=== PATIENT | female | born 1940 | race Caucasian/White ===

== ENCOUNTER → 2016-07-11 10:56 | Outpatient (CLI) | payer MEDICARE, MEDICAID ==
[2016-04-19 17:09] VITALS: BMI 28.7
[~2016-07-11 10:56] MED LIST: ASPIRIN 81 MG E81 MG PO; BRILINTA90 MG PO; CALCIUM 600+D T1 TA1 PO; DIOVAN80 MG PO; EFFIENT10 MG PO; HYDROCHLOROTH12.5 M1 PO; HYZAAR 50-12.51 TAB PO; LEVOTHROID125 MCG PO; MULTI-DAY VITAM1 TAB PO; NORCO 7.5-3251 EACH PO; PINDOLOL5 MG PO; PLAVIX75 MG PO; ULTRAM50 MG PO; VITAMIN B-12500 MC1 PO; VITAMIN C1000 MG; VITAMIN D5000 UNIT PO; ZOFRAN4 MG PO
== END | disposition home or self-care (01) ==
LOC: D.MRI 10:56
DX: M25.512 Pain in left shoulder (principal)

== ENCOUNTER 2016-11-11 18:11 | Emergency (ER) | payer MEDICARE ==
[2016-04-19 17:09] VITALS: BMI 28.7
== END 2016-11-11 19:54 | disposition home or self-care (01) ==
LOC: D.ER 18:11
DX: S93.401A Sprain of unspecified ligament of right ankle, initial encounter (principal); X58.XXXA Exposure to other specified factors, initial encounter; Y93.89 Activity, other specified; Y92.89 Other specified places as the place of occurrence of the external cause; M54.12 Radiculopathy, cervical region; I25.10 Atherosclerotic heart disease of native coronary artery without angina pectoris; I10 Essential (primary) hypertension; E03.9 Hypothyroidism, unspecified

== ENCOUNTER → 2017-04-11 13:28 | Outpatient (CLI) | payer MEDICARE ==
[2016-04-19 17:09] VITALS: BMI 28.7
== END | disposition home or self-care (01) ==
LOC: D.MAMMO 08:30
DX: N60.02 Solitary cyst of left breast (principal)

== ENCOUNTER 2017-09-25 10:26 | Observation (INO) | payer MEDICARE ==
[~2017-09-25] VITALS: Ht 170.2 cm; Wt 86.7 kg
--- NOTE | ~2017-09-25 | HEMODYNAMI ---
PATIENT:CYNTHIA DE LA CRUZ MEDICAL RECORD: [id number] : 38 LOCATION:D. D.2117 ADMISSION DATE: 09/25/17 Generatedon:09/26/20178:42 Patient name: CYNTHIA DE LA CRUZ Patient #: [id number] SSN: D OB: 1940 Date of study: 09/26/2017 Page: Of Hemodynamic Procedure Report Patient Data Patient Demographics Procedure consent was obtained First Name: CYNTHIA Gender: Female Last Name: JONO : 1940 Patient #: [id number] Age: 76 year(s) Race: Additional ID: [id number] Contact details Address: [address] [place] [address] State: [place] City: [place] Zip code: [address] Past Medical History History of disease Date Diagnosis Comments CAD Allergies Allergen Reaction Date Comments Reported Penicillins 06/06/2015 Sulfa drugs 06/06/2015 Other allergy 06/06/2015 Plavix, Aleeve Penicillins 04/20/2016 Sulfa drugs 04/20/2016 Other allergy 04/20/2016 Naproxen, Plavic, Brilinta Other allergy 09/26/2017 PCN, Sulfa, Brilinta Admission Admission Data Admission Date: 09/25/2017 Admission Time: 13:15 Admit Source: Other Room #: D.2117 Lab Results Lab Result Date: 09/25/2017 Lab Result Time: 0:00 Biochemistry Name Units Result Min Max BUN mg/dl 18 --(---*)-- 7 18 Creatinine mg/dl 0.8 --(-*--)-- 0.6 1.3 CBC Name Units Result Min Max Hemoglobin g/dl 13.2 -*(----)-- 13.5 17.5 Procedure Procedure Types Cath Procedure Diagnostic Procedure LHC LHC w/Coronaries Procedure Description Procedure Date Procedure Date: 09/26/2017 Procedure Start Time: 8:22 Procedure End Time: 8:41 Procedure Staff Name Function Willi Andersen MD Performing Physician Sincere Camejo RT Monitor Tanya Mary Ann RT Scrub Rakesh Mcgarry RN Nurse Procedure Data Cath Procedure Fluoroscopy Diagnostic fluoroscopy Total fluoroscopy Time: time: 1.53 min 1.53 min Diagnostic fluoroscopy Total fluoroscopy dose: 392 dose: 392 mGy mGy Contrast Material Contrast Material Type Amount (ml) Isovue 300 37 Entry Location Entry Primary Successful Side Size Upsize Upsize Entry Closure Succes sful Closure Location (Fr) 1 (Fr) 2 (Fr) Remarks Device Remarks Femoral Right 5 Fr Exoseal artery Estimated blood loss: 5 ml Diagnostic catheters Device Type Used For End Catheter Placement DIAGNOSTIC JL 5 5Fr Procedure catheter ([id number]) MULTIPACK 3DRC 5Fr Procedure catheter MULTIPACK Pigtail 5 Fr Procedure catheter Procedure Complications No complications Procedure Medications Medication Administration Route Dosage 0.9% NaCl I.V. 100 ml/hr Oxygen NC 2 l/min Heparin Flush Bag added to field 2 bags (1000units/500ml NS) Lidocaine 2% added to field 20 Versed I.V. 1 mg Fentanyl I.V. 25 mcg Hemodynamics Rest HGB: 13.2 (g/dl) Heart Rate: 68 (bpm) Pressure Samples Time Site Value (mmHg) Purpose Heart Use Rate(bpm) 8:33 LV 169/-20,17 EDP 77 8:33 AO 168/76(118) Pullback 77 8:33 LV 170/13,16 Pullback 77 Gradients Valve Time Site 1 Site 2 Mean SEP/DFP Peak To Heart Use (mmHg) (sec/min) Peak Rate (mmHg) (bpm) Aortic 8:33 LV AO 2 20 2 77 170/13,16 168/76(118) Calculations Valve P-P Mean Valve Index Valve Source Name Gradient Area Flow (cm2) Aortic 2 2 2 2 Snapshots Pre Cath Intra NCS Post Cath Vital Signs Time Heart Resp SPO2 etCO2 NIBP (mmHg) Rhythm Pain Sedation Rate (ipm) (%) (mmHg) Status Level (bpm) 8:17:47 75 20 98 48.3 150/78(106) NSR 0 (11) 10(A) , No pain 8:22:36 65 14 98 29.4 137/79(104) NSR 0 (11) 10(A) , No pain 8:27:25 71 17 98 49 141/74(112) NSR 0 (11) 9(A) , No pain 8:32:48 76 18 98 35.4 148/88(129) NSR 0 (11) 10(A) , No pain 8:37:37 72 16 97 32.4 149/82(125) NSR 0 (11) 10(A) , No pain Medications Time Medication Route Dose Verified Delivered Reason Notes Effec tiveness by by 8:16:43 0.9% NaCl I.V. 100 Rakesh Rakesh Per ml/hr Zeferino Mcgarry physician RN RN 8:16:55 Oxygen NC 2 Rakesh Rakesh Per l/min Zeferino Mcgarry physician RN RN 8:17:07 Heparin Flush added 2 Rakesh Rakesh used for Bag to bags Lorigan Zeferino procedure (1000units/500ml field RN RN NS) 8:17:21 Lidocaine 2% added 20ml Rakesh Rakesh for local to vial Lorigan Lorigan anesthetic field RN RN 8:23:41 Versed I.V. 1 mg Rakesh Rakesh for Lorigan Lorigan sedation RN RN 8:23:51 Fentanyl I.V. 25 Rakesh Rakesh for mcg Lorigan Lorigan sedation RN electron tube assembler Log Time Note 7:47:23 Informed consent obtained and on chart 7:47:25 Admit Source: Other 7:47:44 Diagnostic Cath status Elective 7:47:45 Time tracking: Regular hours 7:47:48 Plan of Care:Hemodynamics will remain stable., Cardiac rhythm will remain stable., Comfort level will be maintained., Respiratory function will remain adequate., Patient/ family verbilizes understanding of procedure., Procedure tolerated without complication., Recovers from procedure without complications.. 7:48:42 Lab Result : BUN 17 mg/dl 7:48:42 Lab Result : Hematocrit 38 % 7:48:42 Lab Result : Hemoglobin 12.4 g/dl 7:48:42 Lab Result : Creatinine 0.7 mg/dl 7:49:27 Rakesh Mcgarry RN sent for patient. Start room use. 8:03:52 Patient received from Med II to CCL 1 Alert and oriented. Tansferred to table in Supine position. 8:03:53 Warm blankets applied, and jairo hugger turned on for patient comfort. 8:03:54 Correct patient and procedure confirmed by team. 8:03:55 ECG and BP/O2 sat monitors applied to patient. 8:16:41 Vital chart was started 8:16:42 Baseline sample Acquired. 8:16:43 0.9% NaCl 100 ml/hr I.V. was administered by Rakesh Mcgarry RN; Per physician; 8:16:52 Rhythm: sinus rhythm 8:16:54 Full Disclosure recording started 8:16:55 Oxygen 2 l/min NC was administered by Rakesh Mcgarry RN; Per physician; 8:17:02 H&P Date Dictated: 09/25/2017 Within 30 days and on chart.. 8:17:03 Pre-procedure instructions explained to patient. 8:17:04 Pre-op teaching completed and patient verbalized understanding. 8:17:06 Family in patients room. 8:17:07 Heparin Flush Bag (1000units/500ml NS) 2 bags added to field was administered by Rakesh Mcgarry RN; used for procedure; 8:17:09 Patient NPO since Midnight. 8:17:21 Lidocaine 2% 20ml vial added to field was administered by Rakesh Mcgarry RN; for local anesthetic; 8:17:27 Patient allergic to Other allergyPCN, Sulfa, Brilinta 8:17:29 Is the patient allergic to Iodine/contrast media? No. 8:17:30 Is patient on blood thinner?Yes 8:17:32 ACC The patient was administered the following blood thiners within the last 24 hours: ACCPlavix 8:17:34 Patient diabetic? No. 8:17:37 Previous problem with sedation/anesthesia? No ? 8:17:37 Snore? No 8:17:38 Sleep apnea? No 8:17:39 Deviated septum? No 8:17:42 Opens mouth fully? Yes 8:17:43 Sticks out tongue? Yes 8:17:45 Airway obstruction? No ? 8:17:47 Dentures? Yes in tight 8:17:50 Pre procedure: right dorsailis pedis pulse 2+ Normal; easily identifiable; not easily obliterated 8:17:53 Patient pain scale 0/10 ?. 8:18:00 IV patent on arrival in left hand with 0.9% NaCl at [facility]. 8:18:02 Lab results completed and on chart. 8:18:06 Right groin area was prepped with chlora-prep and draped in sterile fashion 8:18:07 Alarms reviewed by Pawel Gay. 8:18:07 Sharps counted by scrub and verified by R.N. 8:18:10 Use device set Femoral Dx 8:18:11 ACIST Syringe (77425) opened to sterile field. 8:18:11 Bag Decanter (2002S) opened to sterile field. 8:18:12 Medline Cath Pack ([id number]) opened to sterile field. 8:18:14 ACIST Hand Control (36119) opened to sterile field. 8:18:14 ACIST Manifold (48357) opened to sterile field. 8:18:15 Tegaderm 4 x 4 (1626W) opened to sterile field. 8:18:21 MICROPUNCTURE 4FR Cook ([id number]) opened to sterile field. 8:18:23 DIAGNOSTIC WIRE .035 260cm J wire (705126) opened to sterile field. 8:19:06 SHEATH 5Fr Prelude ([id number]) opened to sterile field. 8:19:15 DIAGNOSTIC Multipack 5Fr catheter set (GD1221) opened to sterile field. 8:20:28 Physician arrived 8:20:29 --------ALL STOP TIME OUT------ 8:20:30 Final Timeout: patient, procedure, and site verified with staff and physician. All members of the team are in agreement. 8:20:32 Right groin site verified by team. 8:20:35 Physical assessment completed. ASA score P 2 - A patient with mild systemic disease as per Willi Andersen MD. 8:20:37 Sedation plan: IV Moderate Sedation Medication:Versed, Fentanyl 8:22:57 Procedure started. 8:22:59 Local anesthetic to right femoral artery with Lidocaine 2% by Willi Andersen MD.INITIAL ACCESS ONLY 8:23:19 Zero performed for pressure channel P1 8:23:41 Versed 1 mg I.V. was administered by Rakesh Mcgarry RN; for sedation; 8:23:51 Fentanyl 25 mcg I.V. was administered by Rakesh Mcgarry RN; for sedation; 8:24:50 Access obtained with 4Fr micropunture. 8:25:04 A 5 Fr sheath was inserted into the Right Femoral artery 8:26:41 A DIAGNOSTIC JL 5 5Fr catheter ([id number]) was advanced over the wire and used for Procedure. 8:27:38 LCA angiography performed. 8:30:00 Catheter exchanged over wire. 8:30:09 A MULTIPACK 3DRC 5Fr catheter was advanced over the wire and used for Procedure. 8:30:59 RCA angiography performed. 8:32:13 Catheter exchanged over wire. 8:32:23 A MULTIPACK Pigtail 5 Fr catheter was advanced over the wire and used for Procedure. 8:33:42 LV gram done using SAZN 8:33:58 EF : 65 % 8:34:01 LV hemodynamics recorded. 8:34:04 Injector settings: Ml/sec: 12, Volume: 8, 8:34:10 Catheter removed. 8:34:12 EXOSEAL 5Fr (EX500) opened to sterile field. 8:34:21 Sheath removed intact; hemostasis achieved with Exoseal to the Right Femoral artery. 8:34:31 Procedure ended.(Physican Out) 8:34:56 Fluoroscopy time 01.53 minutes. 8:35:01 Fluoroscopy dose: 392 mGy 8:35:01 Flurop Dose total: 392 8:35:14 Contrast amount:Isovue 300 37ml. 8:35:16 Sharps counted by scrub and verified by R.N. 8:35:16 Insertion/operative site no bleeding no hematoma. 8:35:19 Post-op/insertion site Right Femoral artery dressed using a 4 x 4 and Tegaderm. 8:35:23 Post right femoral artery:stable, soft, clean and dry 8:35:24 Post Procedure Pulses reassessed and unchanged 8:35:28 Post-procedure physical assessment completed. ASA score P 2 - A patient with mild systemic disease as per Willi Andersen MD. 8:35:30 Post procedure rhythm: unchanged. 8:35:33 Estimated blood loss: 5 ml 8:35:37 Post procedure instruction explained to patient.Patient verbalizes understanding. 8:35:38 Patient needs reinforcement of post procedure teaching. 8:40:27 Procedure and supply charges have been captured, reviewed, submitted and are correct. 8:40:30 Procedure Complication : No complications 8:40:34 Vital chart was stopped 8:40:34 See physician's report for complete and final results. 8:40:35 Report given to Pre/Post Procedure Room. 8:40:38 Patient transfered to Pre/Post Procedure Room with Stretcher. 8:41:31 Drape sticker cause small skin tear on pt. Cleaned and dressed with a 4X4 and tegaderm 8:41:57 Procedure ended. 8:41:57 Full Disclosure recording stopped 8:42:01 End room use (Document Last) Device Usage Item Name Manufacture Quantity Catalog Hospital Part Current Minima l Lot# / Number Charge Number Stock Stock Serial# Code ACIST Syringe Acist 1 93452 473118 247851 458753 20 (37148) Medical Systems Inc Bag Decanter Microtek 1 2001S [id number] 67535 [id number] 5 (2001S) Medical Inc. Medline Cath Cardinal 1 [id number] 907173 32362 973189 5 Pack Health ([id number]) ACIST Hand Acist 1 09102 922354 394336 346271 5 Control Medical (86554) Systems Inc ACIST Acist 1 99867 890213 577819 352926 5 Manifold Medical (57847) Systems Inc Tegaderm 4 x 3M 1 1626W 427061 629691 475763 5 4 (1626W) MICROPUNCTURE Cook Medical 1 C34992 685821 732995 480314 5 4FR Cook ([id number]) DIAGNOSTIC [facility] Hernandez 1 606328 367377 401107 050817 30 WIRE .035 260cm J wire (659463) SHEATH 5Fr Merit 1 [id number] 576184 981423 402143 5 Prelude Medical ([id number]) DIAGNOSTIC Cardinal 1 KI6368 730104 33423 051704 30 Multipack 5Fr Health catheter set (LY2997) DIAGNOSTIC JL Cardinal 1 [id number] 794492 378786 367976 5 5 5Fr Health catheter (809479Z) MULTIPACK Cardinal 1 384951 5 3DRC 5Fr Health catheter MULTIPACK Cardinal 1 830897 5 Pigtail 5 Fr Health catheter EXOSEAL 5Fr Cardinal 1 EX500 261261 363071 909765 10 (EX500) Health Signature Audit [facility] Stage Time Signature Unsigned Intra-Procedure 09/26/2017 Sincere Camejo 8:42:47 AM RT(R) Signatures Monitor : Sincere Camejo RT Signature : Date : Time : [facility] [address] [place] [address]
--- NOTE | ~2017-09-25 | EC ---
PATIENT:CYNTHIA DE LA CRUZ DATE OF SERVICE: 09/25/17 SEX: F MEDICAL RECORD: [id number] DATE OF : 38 [facility] AGE OF PATIENT: 76 ADMISSION DATE: 09/25/17 REFERRING PHYSICIAN: INTERPRETING PHYSICIAN: PATO SAHA MD ECHOCARDIOGRAM REPORT ECHO CHARGES 4 ECHO COMPLETE Date: 09/25 CLINICAL DIAGNOSIS: CP ECHOCARDIOGRAPHIC MEASUREMENTS (adult normal given) AC root (d.<3.7cm) 3.5 cm LV Septum d (<1.2 cm> 1.5 cm Valve Excursion 2.0 cm LV Septum (systole) 2.0 cm Left Atria (s.<4.0cm> 3.3 cm LVPW d(<1.2cm) 1.2 cm RV (d.<2.3cm) 2.7 cm LVPW (sytole) 2.0 cm LV diastole(<5.6CM) 4.5 cm MV E-F(>70mm/sec) cm LV systole 2.4 cm LVOT Diameter 1.8 cm MV exc.(>10mm) cm Est.ejection fraction (50-75%) % DOPPLER: LVIT cm/sec A 65.0 cm/sec E 53.0 cm/sec LA cm/sec RVSP 34.0 mmHg LVOT 109 cm/sec AOP1/2T m/s Asc. Ao 164 cm/sec RVOT 77.0 cm/sec RA cm/sec PA 106 cm/sec AV Gradient Peak 11.0 mmHg AV Mean 5.7 mmHg AV Area 1.6 cm MV Gradient Peak 4.1 mmHg MV Mean 1.1 mmHg MV Area cm COMMENTS: Latex Ribbon Machine Operator: Sophia THRASHEROE Hand Violin Maker: 4 Dr. Saha TAPE# PACS Pericardial Effusion N DATE OF SERVICE: PROCEDURE: Transthoracic echocardiogram. FINDINGS: 1. The patient has moderate concentric left ventricular hypertrophy with inflow characteristics consistent with diastolic dysfunction or possibly increased left ventricular end-diastolic pressures. There is no regional wall motion abnormalities and ejection fraction 65%. 2. The left atrium is normal size, normal function. ECHOCARDIOGRAM REPORT [id number] CYNTHIA DE LA CRUZ 3. The mitral valve has moderate mitral regurgitation. 4. The aortic valve is normal, trileaflet structure. 5. The tricuspid valve has moderate tricuspid regurgitation. RVSP is mildly elevated at 34 mmHg. 6. The pericardium is normal. 7. The right ventricle is normal size, normal shape, and normal function. 8. The right atrium is normal size, normal shape, and normal function. 9. The pulmonic valve is normal. CONCLUSIONS: The patient has evidence of hypertensive heart disease with diastolic dysfunction. TRANSINT:[id number] Voice Confirmation ID: [id number] DOCUMENT ID: [id number] PATO SAHA MD at 1426 CC: [id number] DICTATION DATE: 09/26/17 1016 TURNER OFF: 09/26/17 1112 DIS IN 09/26/17 [facility] [address] [place] [address]
[2017-09-25 11:11] LABS: BASOPHILS 0.3 % (0-2); EOSINOPHILS 1.8 % (0-7); HEMATOCRIT 39.4 % (36.0-48.0); HEMOGLOBIN 13.2 g/dL (12-16); IMMATURE GRANULOCYTES 0.5 % (0-5); LYMPHOCYTES 34.7 % (15-50); MCH 31.3 pg (26.0-34.0); MCHC 33.5 g/dL (31.0-37.0); MCV 93.4 fL (80.0-100.0); MEAN PLATELET VOLUME 9.4 fL (7.4-10.4); MONOCYTES 8.9 % (2-11); NEUTROPHILS 53.8 % (40-80); PLATELET COUNT 217 10x3/uL (130-400); RBC 4.22 10x6/uL (4.00-5.40); RDW 13.5 % (11.5-14.5); WBC 7.6 10x3/uL (4.8-10.8)
[2017-09-25 11:23] LABS: ALBUMIN 3.9 g/dL (3.4-5.0); ALKALINE PHOSPHATASE 60 U/L (46-116); ALT (SGPT) 33 U/L (10-68); BILIRUBIN - TOTAL 0.65 mg/dL (0.2-1.3); CALC OSMOLALITY 280 mosm/kg (275-300); CALCIUM 9.8 mg/dL (8.5-10.1); CARBON DIOXIDE 25.6 mmol/L (21.0-32.0); CHLORIDE - SERUM 104 mmol/L (98-107); CREATININE - SERUM 0.8 mg/dL (0.6-1.3); GLUCOSE 96 mg/dL (74-106); POTASSIUM - SERUM 4.4 mmol/L (3.5-5.1); PROTEIN - SERUM 7.2 g/dL (6.4-8.2); SODIUM 140 mmol/L (136-145); UREA NITROGEN 18 mg/dL (7-18); eGFR NON AFRICAN AMERICAN 74 mL/min (90-120)
[2017-09-25 11:37] LABS: CHOL - HDL RATIO 3.8 ratio (2.3-4.1); CHOLESTEROL, TOTAL 197 mg/dL (0-200); CREATINE KINASE 98 UL (21-215); HDL CHOLESTEROL 52 mg/dL (32-96); LDL CHOLESTEROL 123 mg/dL (0-100); LDL-HDL RATIO 2.4 ratio (1.5-3.5); TRIGLYCERIDE 111 mg/dL (30-200)
[2017-09-25 11:39] LABS: TROPONIN-I < 0.017 ng/mL (0.000-0.060)
[2017-09-25 13:19] LABS: CREATINE KINASE 94 UL (21-215)
[2017-09-25 13:41] LABS: TROPONIN-I < 0.017 ng/mL (0.000-0.060)
[2017-09-25] MEDS ORDERED: HYZAAR 50-12.51 TAB PO (14:26)
[2017-09-25] MEDS ORDERED: CELEXA10 MG PO (14:28)
[2017-09-25 14:33] VITALS: BP 112/69; Ht 170.2 cm; Wt 86.7 kg
[2017-09-25 15:11] VITALS: BP 110/68
[2017-09-25 16:20] LABS: BASOPHILS 0.3 % (0-2); EOSINOPHILS 1.3 % (0-7); HEMOGLOBIN 12.4 g/dL (12-16); IMMATURE GRANULOCYTES 0.3 % (0-5); LYMPHOCYTES 34.6 % (15-50); MCH 30.8 pg (26.0-34.0); MCHC 32.6 g/dL (31.0-37.0); MCV 94.5 fL (80.0-100.0); MEAN PLATELET VOLUME 9.4 fL (7.4-10.4); MONOCYTES 10.6 % (2-11); NEUTROPHILS 52.9 % (40-80); PLATELET COUNT 174 10x3/uL (130-400); RBC 4.02 10x6/uL (4.00-5.40); RDW 13.5 % (11.5-14.5); WBC 6.3 10x3/uL (4.8-10.8)
[2017-09-25 16:38] LABS: CALC OSMOLALITY 285 mosm/kg (275-300); CALCIUM 9.4 mg/dL (8.5-10.1); CHLORIDE - SERUM 106 mmol/L (98-107); CREATININE - SERUM 0.7 mg/dL (0.6-1.3); GLUCOSE 109 mg/dL (74-106); SODIUM 142 mmol/L (136-145); UREA NITROGEN 17 mg/dL (7-18); eGFR NON AFRICAN AMERICAN 86 mL/min (90-120)
[2017-09-25 16:40] LABS: POTASSIUM - SERUM 3.7 mmol/L (3.5-5.1)
[2017-09-25 18:24] LABS: CKMB 1.7 U/L (0.0-3.6); CREATINE KINASE 94 UL (21-215); TROPONIN-I < 0.017 ng/mL (0.000-0.060)
[2017-09-25 19:00] VITALS: BP 120/65
[2017-09-26] VITALS: BP 155/73
[2017-09-26 01:31] LABS: CKMB 1.2 U/L (0.0-3.6); CREATINE KINASE 92 UL (21-215); TROPONIN-I < 0.017 ng/mL (0.000-0.060)
[2017-09-26 04:00] VITALS: BP 112/86
[2017-09-26 08:10] VITALS: BP 129/78
== END 2017-09-26 11:50 | disposition home or self-care (01) ==
LOC: D.ER 10:26 → D.M2 13:15 → OBSVTIME 13:15 → D.CLR 09-26 08:50
PROVIDERS: Emergency Medicine; Internal Medicine Cardiovascular Disease
DX: I11.0 Hypertensive heart disease with heart failure (principal); I50.30 Unspecified diastolic (congestive) heart failure; I25.110 Atherosclerotic heart disease of native coronary artery with unstable angina pectoris; Z95.5 Presence of coronary angioplasty implant and graft; I34.0 Nonrheumatic mitral (valve) insufficiency; E78.5 Hyperlipidemia, unspecified

== ENCOUNTER → 2018-04-18 10:30 | Outpatient (CLI) | payer MEDICARE ==
[2017-09-25 14:33] VITALS: BMI 29.8
[~2018-04-18 10:30] MED LIST changes: +CELEXA10 MG PO
== END | disposition home or self-care (01) ==
LOC: D.MAMMO 10:30
DX: Z12.31 Encounter for screening mammogram for malignant neoplasm of breast (principal)

== ENCOUNTER 2019-02-24 09:13 | Emergency (ER) | payer MEDICARE ==
[~2019-02-24] VITALS: Ht 170.2 cm; Wt 83.6 kg
[2019-02-24 09:15] VITALS: Ht 170.2 cm; Wt 83.6 kg
[2019-02-24 09:38] LABS: BASOPHILS 0.4 % (0-2); EOSINOPHILS 3.3 % (0-7); HEMATOCRIT 37.3 % (36.0-48.0); HEMOGLOBIN 12.7 g/dL (12-16); IMMATURE GRANULOCYTES 0.2 % (0-5); LYMPHOCYTES 37.1 % (15-50); MCH 31.1 pg (26.0-34.0); MCV 91.2 fL (80.0-100.0); MEAN PLATELET VOLUME 9.1 fL (7.4-10.4); MONOCYTES 9.8 % (2-11); NEUTROPHILS 49.2 % (40-80); PLATELET COUNT 171 10x3/uL (130-400); RBC 4.09 10x6/uL (4.00-5.40); RDW 13.1 % (11.5-14.5); WBC 5.5 10x3/uL (4.8-10.8)
[2019-02-24] MEDS ORDERED: [UNRECOGNIZED DRUG - OTHER] (09:51)
[2019-02-24] MEDS ORDERED: FUROSEMIDE20 MG PO (09:52)
[2019-02-24] MEDS ORDERED: ELAVIL10 MG PO (09:53)
[2019-02-24 09:57] LABS: ALBUMIN 3.8 g/dL (3.4-5.0); ALKALINE PHOSPHATASE 66 U/L (46-116); ALT (SGPT) 32 U/L (10-68); BILIRUBIN - TOTAL 0.59 mg/dL (0.2-1.3); CALC OSMOLALITY 280 mosm/kg (275-300); CALCIUM 9.8 mg/dL (8.5-10.1); CARBON DIOXIDE 31.6 mmol/L (21.0-32.0); CHLORIDE - SERUM 104 mmol/L (98-107); CREATININE - SERUM 0.8 mg/dL (0.6-1.3); GLUCOSE 103 mg/dL (74-106); POTASSIUM - SERUM 4.3 mmol/L (3.5-5.1); PROTEIN - SERUM 6.9 g/dL (6.4-8.2); SODIUM 141 mmol/L (136-145); UREA NITROGEN 13 mg/dL (7-18); eGFR NON AFRICAN AMERICAN 73 mL/min (90-120)
[2019-02-24 10:07] LABS: INR 0.97 (0.85-1.17); PROTIME 12.4 SECONDS (11.6-15.0)
[2019-02-24 10:08] LABS: APTT 25.7 SECONDS (22.8-39.4); CREATINE KINASE 68 UL (21-215)
[2019-02-24 10:09] LABS: TROPONIN-I < 0.017 ng/mL (0.000-0.060)
[2019-02-24] MEDS ORDERED: SKELAXIN800 MG PO (10:28)
[2019-02-24] MEDS ORDERED: MEDROL DOSE PACK4 MG PO (10:28)
[2019-02-24 11:55] VITALS: BP 102/64
== END 2019-02-24 11:50 | disposition home or self-care (01) ==
LOC: D.ER 09:13
PROVIDERS: Family Medicine
DX: M25.511 Pain in right shoulder (principal)

== ENCOUNTER 2019-05-13 09:00 | Outpatient (CLI) | payer MEDICARE, MEDICAID ==
[2019-02-24 09:15] VITALS: BMI 28.9
[~2019-05-13 09:00] MED LIST changes: +ELAVIL10 MG PO; +FUROSEMIDE20 MG PO; +MEDROL DOSE PACK4 MG PO; +SKELAXIN800 MG PO; +[UNRECOGNIZED DRUG - OTHER]
== END 2019-05-13 10:00 | disposition home or self-care (01) ==
LOC: D.MAMMO 09:00
PROVIDERS: ATTEND Family Medicine
DX: Z12.31 Encounter for screening mammogram for malignant neoplasm of breast (principal)

== ENCOUNTER → 2019-06-10 11:00 | Outpatient (CLI) | payer MEDICARE ==
[2019-02-24 09:15] VITALS: BMI 28.9
== END | disposition home or self-care (01) ==
LOC: D.MAMMO 10:30
PROVIDERS: ATTEND Family Medicine
DX: R92.8 Other abnormal and inconclusive findings on diagnostic imaging of breast (principal)